=== PATIENT | male | born 1985 | race Caucasian/White ===

== ENCOUNTER 2019-09-27 22:11 | Emergency (ER) | payer BC, MEDICAID ==
[~2019-09-27] VITALS: Ht 170.2 cm; Wt 72.6 kg
--- NOTE | 2019-09-27 22:29 | NUR ---
Patient presents to ER with c/o of Lt arm swelling x 1 week after IV drug use. Patient is alert and oriented x 4, no acute distress. Noted non-pitting swelling to Lt forearm arm, noted dry scabbing on Lt forearm. Patient in no acute distress. Dr. Dyer at bedside examining patient.
--- NOTE | 2019-09-27 23:11 | NUR ---
US at bedside.
[2019-09-28] MEDS ORDERED: VANCOMYCIN IV 1,000 MG in IV DEXTROSE 5% 250 ML IV ONE (00:15)
[2019-09-28] MEDS ORDERED: VANCOMYCIN IV 0 ML ONE (00:17)
--- NOTE | 2019-09-28 00:21 | NUR ---
Patient refused for IV antibiotics and IV insertion and lab draws. Dr. Dyer made aware.
[2019-09-28] MEDS ORDERED: CLINDAMYCIN HCL 300 MG CAPSULE ONE (00:26)
[2019-09-28] MEDS ORDERED: CLINDAMYCIN HCL 150 MG CAPSULE PO ONE (00:30)
--- NOTE | 2019-09-28 00:30 | NUR ---
Patient given, prescriptions, written and verbal discharge instructions. Patient verbalizes understanding of instructions. Patient is ambulatory with steady gait. Refuses offer of jail placement. Patient given list of available shelters in surrounding area. Patient does not wish to proceed with medical care recommended by Dr. Dyer. Patient given information related to possible complications, up to and including , which could occur as a result of leaving the hospital at this time. Patient verbalizes understanding of risks involved due to leaving against medical advice. Patient has signed AMA form.
[2019-09-28 00:35] VITALS: BP 120/70
== END 2019-09-28 00:30 | disposition left against medical advice (07) ==
LOC: ER 22:20
DX: R60.9 Edema, unspecified (principal); L03.114 Cellulitis of left upper limb; F11.10 Opioid abuse, uncomplicated; F15.10 Other stimulant abuse, uncomplicated; I80.8 Phlebitis and thrombophlebitis of other sites; F12.10 Cannabis abuse, uncomplicated; F17.290 Nicotine dependence, other tobacco product, uncomplicated; Z71.6 Tobacco abuse counseling; Z79.899 Other long term (current) drug therapy
CPT/HCPCS: A4663; J3370